=== PATIENT | male | born 1985 | race Caucasian/White ===

== ENCOUNTER 2019-07-20 02:24 | Emergency (ER) | payer OTHER ==
--- NOTE | 2019-07-20 02:44 | EDM.PDOC ---
ED HPI GENERAL MEDICAL PROBLEM - General Chief Complaint: Chest Pain Stated Complaint: CHEST PAIN AND CONGESTION Time Seen by Provider: 07/20/19 02:28 - History of Present Illness INITIAL COMMENTS - FREE TEXT/NARRATIVE: HISTORY AND PHYSICAL: History of present illness: The patient is a healthy 33-year-old male who denies any cardiac or pulmonary history and presents with several days, from 3-4 days of cough congestion and right-sided chest discomfort. He said that initially it started with a sore throat and then it became congestion and cough and right-sided discomfort. He says he's had the right-sided pain in the past usually when he drinks energy drinks and is just worse with the cough. He's had no fever that he is aware of because he does not take his temperature and he's had no nausea vomiting but has had diarrhea. He's eating and drinking normally and has no neck pain or sore throat currently but has some sinus congestion and drainage. He has tried minimal zihd-rny-jhocrex therapies for these symptoms. He does smoke cigarettes. Review of systems: As per history of present illness and below otherwise all systems reviewed and negative. Past medical history: As per history of present illness and as reviewed below otherwise noncontributory. Surgical history: As per history of present illness and as reviewed below otherwise noncontributory. Social history: No reported history of drug or alcohol abuse. Family history: As per history of present illness and as reviewed below otherwise noncontributory. Physical exam: General: Well-developed well-nourished overweight man who is nontoxic and vital signs are noted by me. The patient has nasal quality to voice but no breathlessness HEENT: Atraumatic, normocephalic, pupils reactive, negative for conjunctival pallor or scleral icterus, mucous membranes moist, throat clear of exudates and there is minimal oropharyngeal erythema, uvula is midline, there is no cervical adenopathy or nuchal rigidity, neck supple, nontender, trachea midline. Lungs: Clear to auscultation, breath sounds equal bilaterally, chest nontender. There is no wheezing stridor or work of breathing Heart: S1S2, regular in rhythm no overt murmurs Abdomen: Soft, nondistended, nontender. Negative for masses or hepatosplenomegaly. Negative for costovertebral tenderness. Pelvis: Stable nontender. Genitourinary: Deferred. Rectal: Deferred. Extremities: Atraumatic, negative for cords or calf pain. Neurovascular unremarkable. Neuro: Awake, alert, oriented. Cranial nerves II through XII unremarkable. Cerebellum unremarkable. Motor and sensory unremarkable throughout. Exam nonfocal. Diagnostics: EKG chest x-ray influenza rapid strep Therapeutics: [] Impression: URI with cough and right chest pain Definitive disposition and diagnosis as appropriate pending reevaluation and review of above. right chest Pain Score (Numeric/FACES): 3 - Related Data Allergies Allergy/AdvReac Type Severity Reaction Status Date / Time No Known Allergies Allergy Verified 07/20/19 02:37 Home Meds: Home Meds . [No Known Home Meds] 07/20/19 [History] Past Medical History Endocrine/Metabolic History: Reports: Obesity/BMI 30+ Social & Family History - Family History Family Medical History: Noncontributory - Tobacco Use Smoking Status *Q: Current Every Day Smoker Years of Tobacco use: 10 Packs/Tins Daily: 1 - Recreational Drug Use Recreational Drug Use: No ED ROS GENERAL - Review of Systems Review Of Systems: ROS reveals no pertinent complaints other than HPI. ED EXAM, GENERAL - Physical Exam Exam: See Below (See dictation) Course - Vital Signs Last Recorded V/S: Last Vital Signs Temp 36.4 C 07/20/19 02:24 Pulse 77 07/20/19 02:24 Resp 18 07/20/19 02:24 BP 142/74 H 07/20/19 02:24 Pulse Ox 95 07/20/19 02:24 - Orders/Labs/Meds Orders: Active Orders 24 hr Category Date Time Status EKG Documentation Completion [RC] STAT Care 07/20/19 02:40 Active Chest 2V [CR] Stat Exams 07/20/19 02:40 Taken CULTURE STREP A CONFIRMATION [RM] Stat Lab 07/20/19 02:41 Results STREP SCRN A RAPID W CULT CONF [RM] Stat Lab 07/20/19 02:41 Results Departure - Departure Time of Disposition: 03:52 Disposition: Home, Self-Care 01 Condition: Good Clinical Impression: URI with cough and congestion, Right-sided chest pain - Discharge Information Referrals: PCP,None [Primary Care Provider] - Forms: ED Department Discharge Additional Instructions: The following information is given to patients seen in the emergency department who are being discharged to home. This information is to outline your options for follow-up care. We provide all patients seen in our emergency department with a follow-up referral. The need for follow-up, as well as the timing and circumstances, are variable depending upon the specifics of your emergency department visit. If you don't have a primary care physician on staff, we will provide you with a referral. We always advise you to contact your personal physician following an emergency department visit to inform them of the circumstance of the visit and for follow-up with them and/or the need for any referrals to a consulting specialist. The emergency department will also refer you to a specialist when appropriate. This referral assures that you have the opportunity for followup care with a specialist. All of these measure are taken in an effort to provide you with optimal care, which includes your followup. Under all circumstances we always encourage you to contact your private physician who remains a resource for coordinating your care. When calling for followup care, please make the office aware that this follow-up is from your recent emergency room visit. If for any reason you are refused follow-up, please contact the [facility] emergency department at and ask to speak to the emergency department charge nurse. [facility] Primary care- Internal [place] [address] Push hydration and use [id number] medications such as Tylenol and ibuprofen for pain management as well as [id number] cough medications as you choose. Please call and schedule a follow-up appointment as we discussed with one of our clinic providers for your clinic provider for further care and reevaluation. Return to ER as needed and as discussed - My Orders Last 24 Hours: My Active Orders 07/20/19 02:40 EKG Documentation Completion [RC] STAT Chest 2V [CR] Stat 07/20/19 02:41 CULTURE STREP A CONFIRMATION [RM] Stat STREP SCRN A RAPID W CULT CONF [RM] Stat - Assessment/Plan Last 24 Hours: My Active Orders 07/20/19 02:40 EKG Documentation Completion [RC] STAT Chest 2V [CR] Stat 07/20/19 02:41 CULTURE STREP A CONFIRMATION [RM] Stat STREP SCRN A RAPID W CULT CONF [RM] Stat
--- NOTE | 2019-07-20 03:52 | CR ---
INDICATION: pain CHEST, PA AND LATERAL Upright PA and lateral radiographs of the chest were performed. Comparison: No previous studies are currently available for comparison. The lungs appear clear and there are no pleural effusions. Heart size and pulmonary vasculature appear normal. Visualized bones show no significant findings. IMPRESSION: No acute intrathoracic abnormality identified. LINDSEY ERICKSON MD [facility] Dictated by: Ángel Erickson MD @ 07/20/2019 03:50:45 (Electronically Signed)
== END 2019-07-20 04:00 | disposition home or self-care (01) ==
LOC: MW.ED 02:24
DX: J06.9 Acute upper respiratory infection, unspecified (principal); R07.9 Chest pain, unspecified; F17.210 Nicotine dependence, cigarettes, uncomplicated
CPT/HCPCS: 71046; 71046-26; 87081; 87804; 87880-QW; 93005; 99283; 99285-25